=== PATIENT | male | born 1935 ===

== ENCOUNTER 2025-06-26 15:50 | Emergency (ER) | payer SELFPAY ==
[2025-06-26 15:55] VITALS: BP 137/90; PULSE 96; RESP 16; TEMP 36.3; O2SAT 97
[2025-06-26] MEDS: LIDO 1%/EPINEPHRINE 1:100,000 20 ML VIAL (16:39)
--- NOTE | 2025-06-26 16:53 | ED_ITS ---
HPI - General Adult General Chief complaint: Wound/Laceration Stated complaint: Laceration left leg Time Seen by Provider: 06/26/25 16:17 History of Present Illness HPI narrative: Patient 89-year-old gentleman presents emergency department chief complaint of laceration of the left lower extremity. The patient reports that his dog scratched his leg with his clot patient reports no other injuries reports that his last tetanus was in 2019 patient states that he has continued to bleed from that area is not on blood thinners. Related Data Allergies Allergy/AdvReac Type Severity Reaction Status Date / Time No Known Allergies Allergy Verified 06/26/25 16:08 Review of Systems Review of Systems: A 10 system review of systems was completed on the patient and is negative except for what is stated in the HPI. Nursing and ancillary documentation was reviewed. Exam Narrative: GENERAL: Well-appearing, well-nourished, and in no acute distress. HEAD: Normocephalic, atraumatic. EYES: PERRLA and EOMI. ENT: Nares clear, no rhinorrhea or epistaxis. Mucous membranes moist. NECK: Supple. CHEST: Clear to auscultation. No respiratory distress. HEART: Regular rate and rhythm. No murmur heard. Normal peripheral pulses. ABDOMEN: Soft, nontender, nondistended, normal active bowel sounds. EXTREMITIES: Normal range of motion. No edema. 4 cm laceration of the left lower extremity SKIN: Warm, dry, no rash. NEURO: No focal deficits. Alert and oriented x3. PSYCH: Normal mood and affect. Course Vital Signs Vital signs: Vital Signs Temperature 36.3 C L 06/26/25 15:55 Pulse Rate 96 06/26/25 15:55 Respiratory Rate 16 06/26/25 15:55 Blood Pressure 137/90 06/26/25 15:55 Pulse Oximetry 97 06/26/25 15:55 Oxygen Delivery Room Air 06/26/25 15:55 Temperature 36.3 C L 06/26/25 15:55 Pulse Rate 96 06/26/25 15:55 Respiratory Rate 16 06/26/25 15:55 Blood Pressure 137/90 06/26/25 15:55 Pulse Oximetry 97 06/26/25 15:55 Oxygen Delivery Room Air 06/26/25 15:55 Procedures Laceration Laceration 1: Date: 06/26/25 Time: 16:54 Site: lower extremity Side (If applicable): left Size (cm): 4 Local Anesthetic: lidocaine 1% and with epi Amount of anesthesia used (mL): 6 Pre-repair: wound explored, irrigated and irrigated extensively ====== Skin Level ====== Skin layer closed with: nylon Size (cm): 4-0 Number of sutures: 4 Technique: simple, interrupted ====== Subcutaneous Layer ====== ====== Muscle Layer ====== ====== Tendon Layer ====== Medical Decision Making Vital Signs Vital Signs: Vital Signs Temperature 36.3 C L 06/26/25 15:55 Pulse Rate 96 06/26/25 15:55 Respiratory Rate 16 06/26/25 15:55 Blood Pressure 137/90 06/26/25 15:55 Pulse Oximetry 97 06/26/25 15:55 Oxygen Delivery Room Air 06/26/25 15:55 Temperature 36.3 C L 06/26/25 15:55 Pulse Rate 96 06/26/25 15:55 Respiratory Rate 16 06/26/25 15:55 Blood Pressure 137/90 06/26/25 15:55 Pulse Oximetry 97 06/26/25 15:55 Oxygen Delivery Room Air 06/26/25 15:55 Discharge Plan Discharge Clinical Impression: Laceration Patient Disposition: Home Condition: Stable Instructions: Antibiotic Form, Laceration (ED) Patient Language: Sudanese Prescriptions: New amoxicillin-pot clavulanate 875-125 mg tablet 1 tablet PO Q12H 10 Days Qty: 20 0RF Follow-up/Referrals: PHYSICIAN NOT ON STAFF,NONSTAFF [Primary Care Provider] Time of Disposition: 16:57
[2025-06-26] MEDS: TETANUS,DIPHTHERIA,AC PERTUSSIS ADULT (0.5 ML) BOOSTRIX IM (17:24)
== END 2025-06-26 18:15 | disposition home or self-care (01) ==
LOC: ANHED 17:48
PROVIDERS: Emergency Provider Emergency Medicine
DX: S81.812A Laceration without foreign body, left lower leg, initial encounter (principal); Z23 Encounter for immunization; W54.8XXA Other contact with dog, initial encounter
CPT/HCPCS: 12002; 90471; 90715; 99283; A9270; J2004